=== PATIENT | female | born 1950 | race African-American/Black ===

== ENCOUNTER 2016-04-03 08:20 | Observation (INO) ==
--- NOTE | 2016-04-03 08:36 | Emergency Department Note ---
Disposition Clinical Impression: Renal failure, Elevated troponin I level Congestive heart failure Qualifiers: Congestive heart failure type: unspecified congestive heart failure type Congestive heart failure chronicity: acute on chronic Qualified Code(s): I50.9 - Heart failure, unspecified Disposition: Admitted As Inpatient Condition: Fair Forms: ED Satisfaction Letter Time of Disposition: 10:43 SOB HPI - General Chief Complaint: ED Shortness of Breath/Dyspnea Stated Complaint: SOB Time Seen by Provider: 04/03/16 08:28 Source: patient Mode of arrival: EMS Limitations: no limitations Nursing Notes Reviewed: Yes Vital Signs Reviewed: Yes - History of Present Illness Patient is a 65-year-old female who presents to [facility] ED with a chief complaint of shortness of breath. States her symptoms have been going on over the last week and worsened last night. States she was started on a dose of Lasix though she does not know how much. 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 She has been seeing Dr. Shannon for kidney disease though she does not know this was specifics of this. Denies any nausea, vomiting, fever or chills. She has had a cough though nonproductive. Past medical history significant for kidney disease, hypertension, anxiety and depression. Pt Subjective Complaint: shortness of breath Onset (ago): day(s) Severity: moderate Consistency/Duration: gradually worsening Improves with: rest, upright position Worsens with: lying flat Associated symptoms: Reports: orthopnea. Denies: chest pain, fever, cough, nausea/vomiting, abdominal pain Treatment prior to arrival: none Cough present: Yes Cough Description: Non-Productive Cough Frequency: Intermittent Sputum production: No Sputum Amount: None - Related Data Home Medications Medication Instructions Recorded Confirmed No Known Home Drugs 04/03/16 04/03/16 Allergies Allergy/AdvReac Type Severity Reaction Status Date / Time cephalexin [From Keflex] AdvReac Rash Verified 04/03/16 10:05 codeine AdvReac Nausea Verified 04/03/16 10:05 All systems ED: reviewed and negative except as stated. Past Medical History - Past Medical History Attestation: Yes The following information was validated with the patient. Source: patient Physical Exam - General Limitations: no limitations General appearance: alert, in no apparent distress - Head Head exam: atraumatic, normocephalic, normal inspection - Eye Eye exam: Present: normal appearance, PERRL, EOMI - ENT ENT exam: normal exam, normal oropharynx, mucous membranes moist - Neck Neck exam: Present: normal inspection, full ROM, trachea midline - Chest Chest inspection: Present: normal inspection - Respiratory Respiratory exam: Present: other (Left-sided rhonchi) - Cardiovascular Cardiovascular exam: Present: normal rhythm, tachycardia - Abdominal Exam Abdominal exam: Present: soft, Non-Tender. Absent: tenderness, distention, guarding, rebound, rigidity - Extremities Exam Extremities exam: Present: normal inspection, full ROM. Absent: tenderness, pedal edema - Back Exam Back exam: Present: normal inspection, full ROM. Absent: tenderness - Neurological Exam Neurological exam: Present: alert, oriented X3 - Psychiatric Psychiatric exam: Present: normal affect, normal mood - Skin Skin exam: Present: warm, dry, intact, normal color Course Course Narrative: Patient seen and examined. Symptoms of fluid accumulation in the lungs. Gradual shortness of breath along with orthopnea. No lower extremity swelling. Patient is hypertensive in the 180s over 110s. Cardiac workup initiated. - Reevaluation(s) Reevaluation #1: Troponin elevated at 0.07. BNP greater than 5000. We will admit for CHF exacerbation. Acute kidney injury on chronic kidney disease as well. Her creatinine is higher than it has been in the past. I spoke with hospitalist Dr. Mccoy who has accepted patient for admission. She would like 40 mg of IV Lasix. This was given and pt's BP currently at 150/100. Time: 10:41 Shortness of Breath/Dyspnea - Medical Records Medical records reviewed: Yes I reviewed the patient's medical records. - Lab Data Lab results reviewed: Yes I reviewed the patient's lab results. - Radiology Data Radiology results reviewed: Yes I reviewed the patient's radiology results. - EKG Data EKG attestation: Yes I reviewed and interpreted this EKG. EKG results narrative: EKG done at 827 shows sinus tachycardia with a rate of [address] elevation or depressions noted. Inverted T wave in lead 1 and aVL. This is unchanged from prior EKG done 04/30/2009.
--- NOTE | 2016-04-03 08:51 | Emergency Department Note ---
START Narrative - START START: I examined this patient and my medical decision-making was reviewed with the COAT REPAIR INSPECTOR/PA/Advanced Practice Nurse/Resident Physician. I agree with the documented findings, disposition and treatment plan as described except to the extent set forth below. ED attending note: Patient seen with emergency medicine resident Dr. Lowery. Please see a copy of his note for details of the H&P, evaluation, management and disposition of this patient. We independently had [id number] contact with the patient Briefly: A 65-year-old -[place] female by EMS for increasing shortness of breath. Patient was seen approximately a week ago at [facility] for CHF discharge home with a prescription for Lasix. Patient says she has been unable to fill the prescription. In the interim has had increasing shortness of breath and fatigue. Denies chest pain. Some cough and sputum. Patient has left-sided rales. Trace edema. EKG shows no acute ischemic changes. Patient will need a workup and possibly admission. Provided 40 minutes of critical care service for this patient. Disposition pending.
[2016-04-03 09:11] LABS: Basophils % 0.2 %; Eosinophils # 0.1 K/mcL (0.0-0.6); Eosinophils % 0.5 %; Hematocrit 35.9 % (35.3-44.9); Hemoglobin 11.3 g/dL (11.5-15.4); Immature Granulocytes % 0.3 % (0-4); Lymphocytes # 1.8 K/mcL (0.6-4.6); Lymphocytes % 17.9 %; Mean Corpuscular HGB Conc 31.5 g/dL (31.6-35.5); Mean Corpuscular Hemoglobin 29.7 pg (28.0-33.3); Mean Corpuscular Volume 94.5 fL (83.0-100.0); Mean Platelet Volume 10.8 fL (9.4-12.4); Monocytes # 0.5 K/mcL (0.0-1.3); Monocytes % 5.4 %; Neutrophils # 7.5 K/mcL (1.6-8.9); Platelet Count 343 K/mcL (140-400); Red Cell Distribution Width 13.9 % (11.5-14.5); Segmented Neutrophils % 75.7 %
[2016-04-03 09:23] LABS: Calcium 9.6 mg/dL (8.6-10.8); Potassium 4.1 mEq/L (3.5-4.5)
[2016-04-03] MEDS ORDERED: Furosemide 40 MG/4 ML VIAL IVP ONE (09:53)
[2016-04-03] MEDS ORDERED: Acetaminophen 325 MG TABLET PO PRN (11:07)
[2016-04-03] MEDS ORDERED: Ondansetron 4 MG/2 ML VIAL IVP PRN (11:07)
--- NOTE | 2016-04-03 11:20 | Internal Med History&Physical ---
Date of Encounter: 04/03/16 Time of Encounter: 10:30 Assessment and Plan (1) Acute heart failure Current visit: Yes Status: Acute CXR shows early signs of interstitial pulmonary edema. BNP >5000. troponin 0.07. new diagnosis of heart failure. In ED, she received 40 mg IV lasix with good diuresis (patient went to bathroom twice already). During my examination, her shortness of breath resolved, and she is ambulating without distress. I will place her in observation given her poor insight about her condition. I believe if I discharge her home she won't follow any instructions and she will come back. check Echocardiogram consult nutrition for education about hf. fluid restriction. strict I/o lopressor bid lasix po. Qualifiers: Heart failure type: unspecified heart failure type Qualified Code(s): I50.9 - Heart failure, unspecified (2) Hypertensive urgency Current visit: Yes Status: Acute non-compliance with medications for years because she got tired of taking so many pills every day. She verbalized understanding of all the risks of not taking BP meds including stroke, CHF and [place], but still states that it is going to be very difficult to take medications every day again. start amlodipine, lopressor. iv hydralazine prn/ (3) Acute worsening of stage 4 chronic kidney disease Current visit: Yes Status: Acute CKD stage 4. follows with dr hernandez acute renal failure due to cardiorenal cause. close monitoring of kidney function. avoid nephrotoxins as possible. (4) Elevated troponin I level Current visit: Yes Status: Acute supply demand mismatch from heart failure in the setting of ckd 4. EKG showed ST HR 108, atrial enlargement. (5) Tobacco abuse Current visit: Yes Status: Acute nicotine patch. counseled to quit. Internal Medicine - H&P: HPI Chief complaint: progressive shortness of breath for 1 week Admitted From: Home Plans for Post Hospital Care: Home History of present illness: Ms. Carranza is a 65 year old female with past medical history of HTN, not on any medications for years because she got tired of taking so many pills every day. She verbalized understanding of all the risks of not taking BP meds including stroke, CHF and VA, and still states that it is going to be very difficult to take medications every day again. A week ago, she developed shortness of breath when lying flat so she saw her PCP and was diagnosed with CHF. She was prescribed Lasix but never took it. Her symptoms of shortness of breath progressed and she felt so sick that she came today to our ED. BP 184/ 131. She received 40 mg IV lasix with good diuresis (patient went to bathroom already twice) and improvement of her symptoms. Nosyncope. No le edema. no chest pain. no palpitations. no fever. no cough. no headaches. no focal deficit. no abdominal pain. no new urinary symptoms (she has urinary frequency for years). Past Med Surg Social Fam HX - Past Medical History Medical history: CHF, hypertension, thyroid disease Psychiatric history: bipolar, depression - Social History Smoking Status: Current every day smoker Smokeless Tobacco Status: No Alcohol use: occasionally Drug use: none - Family History Brother Hx Family Endocrine Disorder: Yes (DM) Internal Medicine - H&P: Meds No Known Home Drugs 04/03/16 [History] Allergies cephalexin [From Keflex] Adverse Reaction (Verified 04/03/16 10:05) Rash codeine Adverse Reaction (Verified 04/03/16 10:05) Nausea All Systems PM: A 10-system review of systems was performed and is negative for pertinent findings except as documented above in the HPI. - Constitutional Vitals: Temp Pulse Resp BP Pulse Ox 97.5 F L 108 18 159/100 97 04/03/16 08:21 04/03/16 10:38 04/03/16 10:49 04/03/16 10:49 04/03/16 10:38 General appearance: Present: cooperative, A&O X 3, pleasant, no acute distress, answers questions appropriately - Eye Eye exam: Present: PERRL, sclera anicteric - ENT ENT exam: Present: mucous membranes moist - Neck Neck exam general surgery: Present: supple, trachea midline. Absent: lymphadenopathy - Respiratory Respiratory exam: Present: rhonchi (at left lung base) - Cardiovascular Cardiovascular exam: Present: tachycardia - GI/Abdominal GI/Abdominal exam: Present: normal bowel sounds, soft. Absent: distended, tenderness - Extremities Exam Extremities exam: Absent: pedal edema - Back Exam Back exam: Absent: CVA tenderness (L), CVA tenderness (R) - Neurological Exam Neurological exam: Present: alert, oriented X3, no focal deficits. Absent: facial droop, speech deficit - Skin Skin exam: Present: intact. Absent: rash Internal Med - H&P Results - Labs CBC & Chem 7: 04/03/16 09:02 04/03/16 09:02
[2016-04-03] MEDS: Nicotine 14 MG PATCH.TD24 TD SCH (12:39)
[2016-04-03] MEDS: amLODIPine 5 MG TABLET PO SCH (12:39)
[2016-04-03] MEDS: Furosemide 20 MG/2 ML VIAL IVP SCH (16:50)
[2016-04-03] MEDS: *HR* Heparin 5,000 UNIT/ML VIAL SQ SCH (16:50)
[2016-04-03] MEDS ORDERED: Furosemide 40 MG/4 ML VIAL IVP SCH (17:00)
[2016-04-03 18:24] LABS: Calcium 9.4 mg/dL (8.6-10.8); Magnesium 1.8 mg/dL (1.6-2.6)
--- NOTE | 2016-04-03 20:08 | Electrocardiograph Report ---
[address] [place], [place] [address] Test Date: 2016-04-03 Pat Name: Daria Carranza Department: 105 Room: 2A Gender: F Character Actress: : 1950 Requested By: Rosalva Lowery Order Number: [id number] Reading MD: Zev Magana Measurements Intervals [place] Rate: 105 P: 79 MD: 172 QRS: -28 QRSD: 98 T: 141 QT: 331 QTc: 392 Interpretive Statements SINUS TACHYCARDIA POSSIBLE LEFT ATRIAL ENLARGEMENT BORDERLINE LEFT AXIS DEVIATION ST DEVIATION AND MODERATE T-WAVE ABNORMALITY, CONSIDER LATERAL ISCHEMIA Electronically Signed On 04-03-2016 20:06:35 EST by Zev Magana
[2016-04-04 07:04] LABS: Albumin 2.6 g/dL (3.5-5.0); Bilirubin,Total 0.2 mg/dL (0.2-1.2); Calcium 8.9 mg/dL (8.6-10.8); Chol/HDL Ratio 2.7 (0-4.9); Globulin 2.7 g/dL (2.4-3.5); Magnesium 1.9 mg/dL (1.6-2.6); Potassium 3.9 mEq/L (3.5-4.5); Total Protein 5.3 g/dL (6.0-8.3)
[2016-04-04] MEDS: *HR* Heparin 5,000 UNIT/ML VIAL SQ SCH (07:22)
[2016-04-04] MEDS: Furosemide 20 MG/2 ML VIAL IVP SCH (07:52)
[2016-04-04] MEDS: Nicotine 14 MG PATCH.TD24 TD SCH (07:52)
[2016-04-04] MEDS: amLODIPine 5 MG TABLET PO SCH (07:52)
[2016-04-04] MEDS ORDERED: Furosemide 20 MG TABLET PO SCH (08:00)
[2016-04-04 08:47] LABS: Basophils % 0.3 %; Eosinophils # 0.1 K/mcL (0.0-0.6); Eosinophils % 1.1 %; Hematocrit 33.6 % (35.3-44.9); Immature Granulocytes % 0.4 % (0-4); Lymphocytes # 2.1 K/mcL (0.6-4.6); Lymphocytes % 22.6 %; Mean Corpuscular HGB Conc 32.1 g/dL (31.6-35.5); Mean Corpuscular Hemoglobin 30.1 pg (28.0-33.3); Mean Corpuscular Volume 93.6 fL (83.0-100.0); Mean Platelet Volume 12.4 fL (9.4-12.4); Monocytes # 0.5 K/mcL (0.0-1.3); Monocytes % 5.7 %; Neutrophils # 6.4 K/mcL (1.6-8.9); Red Blood Count 3.59 M/mcL (3.82-4.97); Red Cell Distribution Width 13.9 % (11.5-14.5); Segmented Neutrophils % 69.9 %
[2016-04-04 08:49] LABS: Hemoglobin 10.8 g/dL (11.5-15.4); Platelet Count 284 K/mcL (140-400)
--- NOTE | 2016-04-04 08:50 | Discharge Summary ---
Date of Encounter: 04/04/16 Time of Encounter: 08:47 - Discharge Diagnosis (1) Acute heart failure Priority: Primary Status: Acute Comments: Acute CHF exacerbation possibly diastolic Qualifiers: Heart failure type: unspecified heart failure type Qualified Code(s): I50.9 - Heart failure, unspecified (2) Acute worsening of stage 4 chronic kidney disease Priority: Secondary Status: Acute Comments: Acute on chronic renal failure likely related to CHF (3) Elevated troponin I level Priority: Secondary Status: Acute Comments: Elevated troponins likely secondary to demand ischemia (4) Hypertensive urgency Priority: Secondary Status: Acute Comments: Accelerated hypertension secondary to noncompliance with medications (5) Tobacco abuse Priority: Secondary Status: Acute - Discharge Medications Prescriptions: Amlodipine [Norvasc] 5 mg PO DAILY #30 tablet Furosemide [Lasix] 20 mg PO BID #60 tablet Metoprolol [Lopressor] 25 mg PO BID #60 tablet Sodium Bicarbonate 650 mg PO BID #60 tablet Home Medications: Amlodipine [Norvasc] 5 mg PO DAILY #30 tablet 04/04/16 [Rx] Furosemide [Lasix] 20 mg PO BID #60 tablet 04/04/16 [Rx] Metoprolol [Lopressor] 25 mg PO BID #60 tablet 04/04/16 [Rx] Sodium Bicarbonate 650 mg PO BID #60 tablet 04/04/16 [Rx] Allergies/Adverse Reactions: Allergies cephalexin [From Keflex] Adverse Reaction (Verified 04/03/16 10:05) Rash codeine Adverse Reaction (Verified 04/03/16 10:05) Nausea Procedures/tests Complete & Pending: Procedures Performed prior 72 hours Category Date Time Status ECG 12 lead ECG [ECG] AM 0600 Y 04/04/16 06:00 Ordered EV echocardiogram Routine Y 04/03/16 11:17 Completed Date of admission: 04/03/16 10:04 Primary care physician: Vito Pedro DO - Patient Status Disposition: Home, Self-Care Condition: Good Overall status at discharge: patient is progressing back to baseline - Discharge Instructions Follow Up With: Vito Pedro DO [Primary Care Provider] - Additional Instructions: Follow-up with primary care physician within the next 7 days. Continue Lasix 20 mg twice a day. Follow the final report of the echocardiogram with Dr. Shannon /nephrology within the next 7 days. Start metoprolol and amlodipine for blood pressure control. - Diet and Activity Activity: increase activity as tolerated Diet: low fat, low cholesterol, low salt diet Hospital course: Ms. Carranza is a 65 year old female with a past medical history of hypertension, depression, bipolar disorder not on any medications for years because she got tired of taking so many pills every day. She verbalized understanding of all the risks of not taking BP meds including stroke, CHF and [place], and still states that it is going to be very difficult to take medications every day again. A week ago, she developed shortness of breath when lying flat so she saw her PCP and was diagnosed with CHF. She was prescribed Lasix but never took it. Her symptoms of shortness of breath progressed and she felt so sick that she came to our ED. BP 184/131. She received 40 mg IV lasix with good diuresis (patient went to bathroom already twice) and improvement of her symptoms. Nosyncope. No le edema. no chest pain. no palpitations. no fever. no cough. no headaches. no focal deficit. no abdominal pain. no new urinary symptoms (she has urinary frequency for years). Chest x-ray showed interstitial edema. Her creatinine has increased up to 3.34. She understands that these could be related to her noncompliance with blood pressure medications as her prior creatinine back on October 2015 was 2.45. She prefers to be discharged today and follow with Dr. Shannon. She feels much better, an echocardiogram was done prefers to review the results when she sees Dr. Shannon. Patient will be discharged on Lasix 20 mg twice a day. Metoprolol and amlodipine were started although she mentions she will not take those medications she is tired of taking pills. She understands that her worsening of kidney function and hypertension are due to noncompliance. She was instructed on the risks again. She says she made a "pact with a friend that will take care of her when she gets a stroke of another complication from HTN". Agreed to start lasix. Prescriptions for all other medications were prescribed in case the patient decides to follow our recommendations. Time spent discussing smoking cessation with patient: 3 to 10 minutes - Time Spent with Patient Total time spent providing and/or coordinating discharge services: Greater than 30 minutes (40 min) - Constitutional Vitals: Temp Pulse Resp BP Pulse Ox 97.9 F 80 18 137/84 99 04/04/16 07:12 04/04/16 07:12 04/04/16 07:12 04/04/16 07:12 04/04/16 08:03 General appearance: Present: cooperative, A&O X 3, pleasant, no acute distress, answers questions appropriately - Head Head exam: Present: atraumatic, normocephalic - Eye Eye exam: Present: PERRL, conjuntiva pink, sclera anicteric Pupils: Present: PERRL - Neck Neck exam general surgery: Present: supple, trachea midline. Absent: lymphadenopathy - Respiratory Respiratory exam: Present: CTAB. Absent: accessory muscle use, rales, rhonchi, wheezes - Cardiovascular Cardiovascular exam: Present: RRR, +S1, +S2. Absent: diastolic murmur, gallop, rubs, systolic murmur - GI/Abdominal GI/Abdominal exam: Present: normal bowel sounds, soft, no peritoneal signs. Absent: distended, tenderness - Extremities Exam Extremities exam: Present: warm, radial pulses palpable and symetrical. Absent : calf tenderness, cyanotic, pedal edema - Neurological Exam Neurological exam: Present: CN II-XII intact, oriented X3, no focal deficits. Absent: pronater drift, facial droop, speech deficit - Skin Skin exam: Present: dry, intact
[2016-04-04] MEDS ORDERED: FLU VACC QS2016-17 36MOS UP/PF 0.5 ML SYRINGE IM ONE (09:07)
--- NOTE | 2016-04-04 09:18 | ECHO - Doppler Report ---
Echo with Saline Contrast Name: Daria Carranza Date of Study: 04/03/2016 Date: 1950 Ht: 63.0 in Medical Record#: [id number] Age: 65 Wt: 128.0 lb Gender: Female BSA: 1.6 Order #: [id number] Location: [facility] Room #: 2A62 Reading Physician: Francisco Javier Daniel DO, JOLIE CORNELL FASNC Clamshell Engineer: Maryjane Manning Ordering Physician: Lilly Roblero MD Primary Physician: Vito Pedro DO Indications: Congestive heart failure Impressions: LVEF 45%. Normal LV chamber size. Mild concentric left ventricular hypertrophy. Moderate left ventricular diastolic dysfunction. Mild global left ventricular systolic dysfunction. Normal right ventricular structure and function. Moderately dilated left atrium. No evidence of PFO with agitated saline contrast. Mild aortic regurgitation. No evidence of pulmonary hypertension. Left Ventricular Wall Motion: Rest Echo Findings The apex, apical inferior, mid inferior, basal inferior, apical anterior, mid anterior, basal anterior, apical septal, mid inferior septal, basal inferior septal, apical lateral, mid anterior lateral, basal anterior lateral, mid anterior septal, mid inferior lateral, basal anterior septal and basal inferior lateral ricardo were hypokinetic. Findings: Study Quality * Technically adequate exam. ECG Findings * Normal sinus rhythm. Left Ventricle * LVEF 45%. * Normal LV chamber size. * Mild concentric left ventricular hypertrophy. * Moderate left ventricular diastolic dysfunction. * Mild global left ventricular systolic dysfunction. Right Ventricle * Normal right ventricular structure and function. Left Atrium * Moderately dilated left atrium. Right Atrium * Mildly dilated right atrium. Interatrial Septum * No evidence of PFO with agitated saline contrast. Aortic Valve * Trileaflet aortic valve. * Mildly sclerotic aortic valve leaflets. * Mild aortic regurgitation. * No aortic stenosis. Mitral Valve * Mildly thickened mitral valve leaflets. * Trace mitral regurgitation. * No mitral stenosis. Tricuspid Valve * Normal tricuspid valve structure and function. * Trace tricuspid regurgitation. * No evidence of pulmonary hypertension. Pulmonic Valve * Normal pulmonic valve structure and function. * No pulmonic regurgitation. Aorta * Normally sized aortic root. Pericardium * There is a small pericardial effusion present. * There is no echocardiographic evidence of tamponade. IVC * Normal IVC dimensions and inspiratory collapse. Pulmonary Artery * Normal visualized portions of the main pulmonary artery. History Hypertension History of Smoking Years 25 Packs 2 Congestive Heart Failure Contrast: Agitated saline 20 ml. Measurements: BP: 164/ 94 2D Normal Values RVIDd: 3.10 cm <2.7 cm IVSd: 1.70 cm 0.6 - 1.0 cm LVIDd: 4.70 cm 3.7 - 5.6 cm LVPWd: 1.40 cm 0.6 - 1.1 cm LVIDs: 3.60 cm 1.5 - 3.6 cm AO: 3.00 cm < 4.0 cm LA: 5.30 cm 2.0 - 4.0cm %FS: 23.40 cm >25 % LA volume: 110 Mitral Valve Peak E:1.09 m/sec Peak A:.62 m/sec E/A Ratio:1.8 Peak E' Lat Curtis:6.43 cm/s Peak E' Med Curtis:5.75 cm/s E/E' Lat Ratio:17 E/E' Med Ratio:19 Aortic Valve AI pressure Half-time: 487.00 msec Tricuspid Valve TV Regurg Peak Grad: 11.00mmHg TV Regurg Peak Curtis: 1.66m/sec Updated by Francisco Javier Daniel DO, FACZheng, KATHY DAVE on 04/04/2016 9:12:47 AM electronically signed on 04/04/2016 9:13:40 AM with status of Final Wall Motion Banks: 1=Normal, 2=Hypokinesis, 3=Akinesis, 4=Dyskinesis, 5=Aneurysmal, 6=Hyperkinetic, X=Not Visualized (Blank)=Missing
[2016-04-04 14:35] VITALS: BP 177/70
== END 2016-04-04 09:40 | disposition home or self-care (01) ==
LOC: 2ANU 08:20 → EMEROO 08:20 → SUATTDRO 10:04 → 2ANU 11:23
PROVIDERS: ADMIT Internal Medicine; ATTEND Internal Medicine

== ENCOUNTER 2017-02-06 10:15 | Inpatient (IN) ==
--- NOTE | 2017-02-06 10:27 | Emergency Department Note ---
Disposition Clinical Impression: Elevated troponin CHF exacerbation Qualifiers: Congestive heart failure type: unspecified congestive heart failure type Qualified Code(s): I50.9 - Heart failure, unspecified CKD (chronic kidney disease) Qualifiers: Chronic kidney disease stage: unspecified stage Qualified Code(s): N18.9 - Chronic kidney disease, unspecified Anemia Qualifiers: Anemia type: unspecified type Qualified Code(s): D64.9 - Anemia, unspecified Leukocytosis Qualifiers: Leukocytosis type: unspecified Qualified Code(s): D72.829 - Elevated white blood cell count, unspecified Disposition: Admitted As Inpatient Condition: Good Referrals: Vito Pedro DO [Primary Care Provider] - Forms: ED Satisfaction Letter General Adult HPI - General Chief complaint: ED Shortness of Breath/Dyspnea Stated complaint: CHF Time Seen by Provider: 02/06/17 10:22 Mode of arrival: EMS Limitations: no limitations Nursing Notes Reviewed: Yes Vital Signs Reviewed: Yes - History of Present Illness HPI Narrative: 66-year-old female who reports approximately 24-48 hours of increasing dyspnea. Specifically orthopnea. She does have history of congestive heart failure. She denies missing any of her doses of medications but earlier this month did send back her oxygen machine as she said that she could not afford it. So currently although she is mostly on home oxygen all the time she is not taking oxygen. She did admit to having some chest pain earlier today. It is currently resolved. She does not have known coronary arterial disease. Radiation: non-radiation Pain Scale: 0 Consistency: intermittent Improves with: nothing Worsens with: other (Orthopnea) Associated symptoms: Reports: denies other symptoms Treatments Prior to Arrival: none - Related Data Previous Rx's Medication Instructions Recorded Furosemide [Lasix] 20 mg PO BID #60 tablet 04/04/16 Metoprolol [Lopressor] 25 mg PO BID #60 tablet 04/04/16 Sodium Bicarbonate 650 mg PO BID #60 tablet 04/04/16 amLODIPine [Norvasc] 5 mg PO DAILY #30 tablet 04/04/16 Allergies Allergy/AdvReac Type Severity Reaction Status Date / Time cephalexin [From Keflex] AdvReac Rash Verified 02/06/17 10:15 codeine AdvReac Nausea Verified 02/06/17 10:15 All systems ED: reviewed and negative except as stated. Constitutional: Denies: fever ENT ED: Denies: throat pain Cardiovascular: Reports: chest pain Respiratory: Reports: cough, dyspnea Gastrointestinal: Denies: abdominal pain Integumentary: Denies: rash Neurological: Denies: headache Endocrine: Reports: fatigue Past Medical History - Past Medical History Medical history: Reports: CHF, hypertension, thyroid disease Psychiatric history: Reports: bipolar, depression - Social History Smoking Status: Current every day smoker Smokeless Tobacco Status: No Alcohol use: Reports: occasionally Drug use: Reports: none Physical Exam - General Limitations: no limitations General appearance: alert, in no apparent distress - Head Head exam: atraumatic - Eye Eye exam: Present: normal appearance, PERRL - ENT ENT exam: normal exam, normal oropharynx - Neck Neck exam: Present: normal inspection, full ROM - Chest Chest inspection: Present: normal inspection - Respiratory Respiratory exam: Present: normal lung sounds bilaterally. Absent: respiratory distress - Cardiovascular Cardiovascular exam: Present: normal rhythm, tachycardia - Abdominal Exam Abdominal exam: Present: soft, Non-Tender - Extremities Exam Extremities exam: Present: normal inspection - Neurological Exam Neurological exam: Present: alert, oriented X3 - Psychiatric Psychiatric exam: Present: normal affect, normal mood - Skin Skin exam: Present: warm, dry Course Course Narrative: She is not currently having any chest pain. However she is having orthopnea. No significant lung sounds on exam. She is in no respiratory distress. She is mildly hypoxic at 88% on room air however she is supposed to be on O2 at all times. Echocardiogram showed from March of this year shows LV EF of 45% and moderate diastolic dysfunction. Clinically she has a CHF exacerbation. V/Q low probability for PE. Negative hemoccult on rectal exam. Anemia is present, no bleeding source identified. There is some ST depression in the lateral leads. Troponin is elevated however has chronically been so. No chest pain currently. WBC is elevated but no source of infection is apparent. She is not septic and clinically appears to be an isolated CHF exacerbation. CKD is present at baseline. She feels substantial improvement after nitro paste and lasix. Vital Signs Temperature 98.1 F 02/06/17 10:33 Pulse Rate 101 02/06/17 10:33 Respiratory Rate 22 02/06/17 10:33 Blood Pressure 164/116 02/06/17 10:33 O2 Sat by Pulse Oximetry 100 02/06/17 10:33 Temperature 98.1 F 02/06/17 10:33 Pulse Rate 101 02/06/17 12:16 Respiratory Rate 22 02/06/17 10:33 Blood Pressure 171/97 02/06/17 12:16 O2 Sat by Pulse Oximetry 94 02/06/17 12:16 Oxygen Delivery Oxygen Delivery Nasal Cannula Medical Decision Making - Medical Records Medical records reviewed: Yes I reviewed the patient's medical records. - Lab Data Lab results reviewed: Yes I reviewed the patient's lab results. Result diagrams: 02/06/17 10:37 02/06/17 10:37 Lab Results 02/06/17 02/06/17 02/06/17 Range/Units 10:37 10:37 10:37 WBC 20.7 H (4.3-11.1) K/mcL RBC 2.49 L (3.82-4.97) M/mcL Hgb 7.5 L (11.5-15.4) g/dL Hct 24.0 L (35.3-44.9) % MCV 96.4 (83.0-100.0) fL MCH 30.1 (28.0-33.3) pg MCHC 31.3 L (31.6-35.5) g/dL RDW 14.4 (11.5-14.5) % Plt Count 315 (140-400) K/mcL MPV 10.5 (9.4-12.4) fL Immature Gran % 0.5 (0-4) % Seg Neutrophils % 86.8 % Lymphocytes % 8.6 % Monocytes % 3.8 % Eosinophils % 0.0 % Basophils % 0.3 % Neutrophils # 17.9 H (1.6-8.9) K/mcL Lymphocytes # 1.8 (0.6-4.6) K/mcL Monocytes # 0.8 (0.0-1.3) K/mcL Eosinophils # 0.0 (0.0-0.6) K/mcL Basophils # 0.1 (0.0-0.2) K/mcL D-Dimer 1500 H (0-500) ng/mLFEU Sodium 139 (136-145) mEq/L Potassium 3.9 (3.5-5.1) mEq/L Chloride 113 H (98-107) mEq/L Carbon Dioxide 17 L (23-29) mEq/L BUN 32 H (8-23) mg/dL Creatinine 3.20 H (0.60-1.20) mg/dL Est GFR ( Amer) 18 L (> 60) Est GFR (Non-Af Amer) 14 L (> 60) BUN/Creatinine Ratio 10 (6-26) Glucose 195 H (70-105) mg/dL Calculated Osmolality 300 (280-300) Lactic Acid (0.5-2.2) mmol/L Calcium 9.0 (8.6-10.3) mg/dL Troponin I (< 0.04) ng/mL B-Natriuretic Peptide (Less than 100) pg/mL Urine Color (Yellow) Urine Clarity (Clear) Urine pH (5.0-8.0) pH Units Ur Specific [place] (1.010-1.025) Urine Protein (Neg-Trace) mg/dL Urine Glucose (UA) (Normal) mg/dL Urine Ketones (Negative) mg/dL Urine Blood (Negative) Urine Nitrite (Negative) Urine Bilirubin (Negative) Urine Urobilinogen (Normal) mg/dL Ur Leukocyte Esterase (Negative) Urine Microscopic RBC (0-3) per hpf Urine Microscopic WBC (0-3) per hpf Ur Squamous Epith Cells (None-Few) per lpf Urine Bacteria (None-Few) per hpf Hyaline Casts (None-Few) per lpf Waxy Casts (None Seen) per lpf Urine Mucus (Few) Urine Yeast (None Seen) per hpf Ur Culture Indicated? (NO) Stool Occult Blood (Negative) Blood Type Antibody Screen 02/06/17 02/06/17 02/06/17 Range/Units 10:37 10:37 10:37 WBC (4.3-11.1) K/mcL RBC (3.82-4.97) M/mcL Hgb (11.5-15.4) g/dL Hct (35.3-44.9) % MCV (83.0-100.0) fL MCH (28.0-33.3) pg MCHC (31.6-35.5) g/dL RDW (11.5-14.5) % Plt Count (140-400) K/mcL MPV (9.4-12.4) fL Immature Gran % (0-4) % Seg Neutrophils % % Lymphocytes % % Monocytes % % Eosinophils % % Basophils % % Neutrophils # (1.6-8.9) K/mcL Lymphocytes # (0.6-4.6) K/mcL Monocytes # (0.0-1.3) K/mcL Eosinophils # (0.0-0.6) K/mcL Basophils # (0.0-0.2) K/mcL D-Dimer (0-500) ng/mLFEU Sodium (136-145) mEq/L Potassium (3.5-5.1) mEq/L Chloride (98-107) mEq/L Carbon Dioxide (23-29) mEq/L BUN (8-23) mg/dL Creatinine (0.60-1.20) mg/dL Est GFR ( Amer) (> 60) Est GFR (Non-Af Amer) (> 60) BUN/Creatinine Ratio (6-26) Glucose (70-105) mg/dL Calculated Osmolality (280-300) Lactic Acid 1.9 (0.5-2.2) mmol/L Calcium (8.6-10.3) mg/dL Troponin I 0.06 H* (< 0.04) ng/mL B-Natriuretic Peptide > 5000 H (Less than 100) pg/mL Urine Color (Yellow) Urine Clarity (Clear) Urine pH (5.0-8.0) pH Units Ur Specific [place] (1.010-1.025) Urine Protein (Neg-Trace) mg/dL Urine Glucose (UA) (Normal) mg/dL Urine Ketones (Negative) mg/dL Urine Blood (Negative) Urine Nitrite (Negative) Urine Bilirubin (Negative) Urine Urobilinogen (Normal) mg/dL Ur Leukocyte Esterase (Negative) Urine Microscopic RBC (0-3) per hpf Urine Microscopic WBC (0-3) per hpf Ur Squamous Epith Cells (None-Few) per lpf Urine Bacteria (None-Few) per hpf Hyaline Casts (None-Few) per lpf Waxy Casts (None Seen) per lpf Urine Mucus (Few) Urine Yeast (None Seen) per hpf Ur Culture Indicated? (NO) Stool Occult Blood (Negative) Blood Type Antibody Screen 02/06/17 02/06/17 02/06/17 Range/Units 11:25 12:22 14:33 WBC (4.3-11.1) K/mcL RBC (3.82-4.97) M/mcL Hgb (11.5-15.4) g/dL Hct (35.3-44.9) % MCV (83.0-100.0) fL MCH (28.0-33.3) pg MCHC (31.6-35.5) g/dL RDW (11.5-14.5) % Plt Count (140-400) K/mcL MPV (9.4-12.4) fL Immature Gran % (0-4) % Seg Neutrophils % % Lymphocytes % % Monocytes % % Eosinophils % % Basophils % % Neutrophils # (1.6-8.9) K/mcL Lymphocytes # (0.6-4.6) K/mcL Monocytes # (0.0-1.3) K/mcL Eosinophils # (0.0-0.6) K/mcL Basophils # (0.0-0.2) K/mcL D-Dimer (0-500) ng/mLFEU Sodium (136-145) mEq/L Potassium (3.5-5.1) mEq/L Chloride (98-107) mEq/L Carbon Dioxide (23-29) mEq/L BUN (8-23) mg/dL Creatinine (0.60-1.20) mg/dL Est GFR ( Amer) (> 60) Est GFR (Non-Af Amer) (> 60) BUN/Creatinine Ratio (6-26) Glucose (70-105) mg/dL Calculated Osmolality (280-300) Lactic Acid (0.5-2.2) mmol/L Calcium (8.6-10.3) mg/dL Troponin I (< 0.04) ng/mL B-Natriuretic Peptide (Less than 100) pg/mL Urine Color Yellow (Yellow) Urine Clarity Cloudy A (Clear) Urine pH 6.0 (5.0-8.0) pH Units Ur Specific [place] 1.016 (1.010-1.025) Urine Protein 100 H (Neg-Trace) mg/dL Urine Glucose (UA) 250 H (Normal) mg/dL Urine Ketones Negative (Negative) mg/dL Urine Blood Negative (Negative) Urine Nitrite Negative (Negative) Urine Bilirubin Negative (Negative) Urine Urobilinogen Normal (Normal) mg/dL Ur Leukocyte Esterase Negative (Negative) Urine Microscopic RBC 0-3 (0-3) per hpf Urine Microscopic WBC 5-15 H (0-3) per hpf Ur Squamous Epith Cells Many H (None-Few) per lpf Urine Bacteria Few (None-Few) per hpf Hyaline Casts Few (None-Few) per lpf Waxy Casts Few H (None Seen) per lpf Urine Mucus Few (Few) Urine Yeast Few H (None Seen) per hpf Ur Culture Indicated? NO (NO) Stool Occult Blood Negative (Negative) Blood Type O POSITIVE Antibody Screen NEGATIVE - Radiology Data Radiology results reviewed: Yes I reviewed the patient's radiology results. - EKG Data EKG #1 EKG attestation: Yes I reviewed and interpreted this EKG. EKG shows normal: sinus rhythm Rate: tachycardia Rhythm: NSR [place]/QRS: normal ST segment depression in: v4, v5, v6 Interpretation: other (Some worsening lateral ST depression in comparison to old EKG.) Attestation Statement - Attestation Attestation: I, Edi Yeboah DO, examined this patient [id number] and my medical decision-making was reviewed with Dr. Kobi Diaz, Resident Physician. I agree with the documented findings, disposition and treatment plan as described except to the extent set forth below. Please see my progress notes for details. 66-year-old female presents from home today for evaluation of shortness of breath hypoxia. Patient is supposed to have oxygen at home but has not been using it. Patient is a long-standing history of congestive heart failure. She denies any recent illnesses trauma or injury. Currently she is denying chest pain fevers chills nausea vomiting diarrhea. Denies any headache or vision change. Her main complaint is the shortness of breath. The only time she really truly short of breath is with exertion or while lying flat. Physical exam shows a thin appearing female her head is atraumatic extremities are moist oropharynx. Trachea is midline. She has clear sounding lungs bilaterally with intermittent Crackles when she lies flat. She did cough up some white frothy sputum during my evaluation. Her heart is regular. Abdomen is soft nontender nondistended with no guarding or rigidity. She has no significant signs of pitting edema in lower extremities with normal pulses that are symmetrical. Patient is concerning for congestive heart failure based on the presentation as well as fluid overload interstitial disease secondary to the hypoxia. Patient provided breathing treatments and steroids. Disposition will most likely be admission for definitive management. See detailed documentation of the physical exam, medical intervention, medical decision-making and disposition and the resident physician's note. No critical care provider this patient during the treatment course Patient found to have a BNP greater than 5000. Symptoms have been controlled here. Nitroglycerin paste applied secondary to the chest pressure earlier today that is resolved as well as the concern for pulmonary edema. Patient will need admission. See detailed documentation of this course of care. 1430 Patient has a VQ scan is negative for concern for pulmonary emboli. Occult testing the lab at this time patient will be admitted.
[2017-02-06 10:48] LABS: Basophils # 0.1 K/mcL (0.0-0.2); Basophils % 0.3 %; Immature Granulocytes % 0.5 % (0-4); Lymphocytes # 1.8 K/mcL (0.6-4.6); Lymphocytes % 8.6 %; Mean Corpuscular HGB Conc 31.3 g/dL (31.6-35.5); Mean Corpuscular Hemoglobin 30.1 pg (28.0-33.3); Mean Corpuscular Volume 96.4 fL (83.0-100.0); Mean Platelet Volume 10.5 fL (9.4-12.4); Monocytes # 0.8 K/mcL (0.0-1.3); Monocytes % 3.8 %; Neutrophils # 17.9 K/mcL (1.6-8.9); Platelet Count 315 K/mcL (140-400); Red Blood Count 2.49 M/mcL (3.82-4.97); Red Cell Distribution Width 14.4 % (11.5-14.5); Segmented Neutrophils % 86.8 %
[2017-02-06 11:09] LABS: Hemoglobin 7.5 g/dL (11.5-15.4)
[2017-02-06] MEDS ORDERED: Nitroglycerin 1 INCH/GM PACKET TP ONE (11:21)
[2017-02-06] MEDS ORDERED: Furosemide 40 MG/4 ML VIAL IVP ONE (11:21)
[2017-02-06 12:08] LABS: Potassium 3.9 mEq/L (3.5-5.1)
[2017-02-06] MEDS ORDERED: Aspirin 325 MG TABLET PO ONE (12:13)
[2017-02-06 14:06] LABS: Bilirubin,Urine Negative (Negative); Blood,Urine Negative (Negative); Clarity,Urine Cloudy (Clear); Color,Urine Yellow (Yellow); Glucose,Urine (UA) 250 mg/dL (Normal); Ketones,Urine Negative (Negative); Leukocyte Esterase,Urine Negative (Negative); Nitrite,Urine Negative (Negative); Protein,Urine 100 mg/dL (Neg-Trace); Specific Gravity,Urine 1.016 (1.010-1.025); Urobilinogen,Urine Normal (Normal)
[2017-02-06 14:08] LABS: Bacteria,Urine Few per hpf (None-Few); Squamous Epithelial Cell,Urine Many per lpf (None-Few)
[2017-02-06 14:22] LABS: Hyaline Casts,Urine Few per lpf (None-Few); RBC,Urine 0-3 per hpf (0-3); Waxy Casts,Urine Few per lpf (None Seen)
[2017-02-06 14:23] LABS: Mucus,Urine Few (Few); Yeast,Urine Few per hpf (None Seen)
--- NOTE | 2017-02-06 15:33 | Internal Med History&Physical ---
Date of Encounter: 02/06/17 Time of Encounter: 15:31 Assessment and Plan (1) Congestive heart failure Current visit: No Status: Acute CHF exacerbations due to severe hypertension. Telemetry monitoring. We will start the patient on nitrates, IV Lasix. Optimal control of blood pressure. Patient is noncompliant with her medications. She has not taken any of her medications for the past five-month. Check LV function Qualifiers: Qualified Code(s): I50.9 - Heart failure, unspecified (2) CKD stage 5 secondary to hypertension Current visit: Yes Status: Acute Due to long-standing uncontrolled hypertension (3) UTI (urinary tract infection) Current visit: Yes Status: Acute Ceftriaxone. Qualifiers: Qualified Code(s): N39.0 - Urinary tract infection, site not specified; R31.9 - Hematuria, unspecified; R31.9 - Hematuria, unspecified (4) Hypertensive urgency Current visit: No Status: Acute Due to medication noncompliance in addition to increased volume in this patient was CK beseech 5. Start the patient on 3 blood pressure medications including a diuretic. This includes her amlodipine, metoprolol, IV Lasix. Also add nitrates (5) Tobacco abuse Current visit: No Status: Acute She smokes 2 packs of cigarettes daily. nicotine patch. (6) Elevated troponin Current visit: Yes Status: Acute [id number] I versus 2. patient never had evaluation of her coronary arteries. serial troponin. Cardiology consultation Internal Medicine - H&P: HPI Chief complaint: sob History of present illness: Ms. Carranza is a 66 year old female with past medical history of uncontrolled hypertension has stopped taking all her medications 5 month ago after she lost her primary care physician, history of CKD stage 4-5, presents to the emergency room today with the main complaint of shortness of breath. For the past day patient has been experiencing progressive shortness of breath to the point where she is short of breath at rest. She noticed that she short of breath especially when she lays flat on her back and improves when sitting up. She had some retrosternal chest discomfort that only lasts intermittently for few seconds. No relation of her chest pain with exertion. She has denied any fevers chills cough expectoration. no sick contacts or recent travel. Patient was severely hypertensive on arrival to the emergency room. Patient mentioned that she has the noncompliant with all her heart medications for the past 5 month is not taking any medicines at all. Patient mentioned that she was noncompliant after she lost her primary care physician. Patient has never had coronary evaluation before. Past Med Surg Social Fam HX - Past Medical History Medical history: CHF, hypertension, thyroid disease Psychiatric history: bipolar, depression - Social History Smoking Status: Current every day smoker Smokeless Tobacco Status: No Alcohol use: occasionally Drug use: none - Family History Brother Hx Family Endocrine Disorder: Yes (DM) Internal Medicine - H&P: Meds Furosemide [Lasix] 20 mg PO BID #60 tablet 04/04/16 [Rx] Metoprolol [Lopressor] 25 mg PO BID #60 tablet 04/04/16 [Rx] Sodium Bicarbonate 650 mg PO BID #60 tablet 04/04/16 [Rx] amLODIPine [Norvasc] 5 mg PO DAILY #30 tablet 04/04/16 [Rx] 3 Allergy/AdvReac Type Severity Reaction Status Date / Time cephalexin [From Keflex] AdvReac Rash Verified 02/06/17 10:15 codeine AdvReac Nausea Verified 02/06/17 10:15 All Systems PM: A 10-system review of systems was performed and is negative for pertinent findings except as documented above in the HPI. Review of systems: 10 point review of systems is negative except for HPI - Constitutional Vitals: Temp Pulse Resp BP Pulse Ox 98.1 F 101 22 171/97 94 02/06/17 10:33 02/06/17 12:16 02/06/17 10:33 02/06/17 12:16 02/06/17 12:16 Exam: Gen.: patient is alert oriented times 3 not in distress. Cardiac: normal S1 S2 no additional sounds or murmurs. Chest: Bilateral basal crackles Abdomen: soft nontender nondistended normal bowel sounds lower extremity: lax calf muscles no swelling neuro: no focal deficit Internal Med - H&P Results - Labs CBC & Chem 7: 02/06/17 10:37 02/06/17 10:37
[2017-02-06] MEDS ORDERED: Levofloxacin 750 MG/150 ML 750 MG/150 ML BAG IVPB SCH (16:00)
[2017-02-06] MEDS ORDERED: 0.9 % Sodium Chloride 250 ML ONE (18:23)
[2017-02-06] MEDS ORDERED: Melatonin 3 MG TABLET PO ONE (20:28)
[2017-02-07 04:43] LABS: Basophils % 0.2 %; Eosinophils % 0.1 %; Hematocrit 25.3 % (35.3-44.9); Hemoglobin 8.3 g/dL (11.5-15.4); Immature Granulocytes % 0.7 % (0-4); Mean Corpuscular HGB Conc 32.8 g/dL (31.6-35.5); Mean Corpuscular Hemoglobin 30.5 pg (28.0-33.3); Mean Platelet Volume 11.1 fL (9.4-12.4); Monocytes # 0.6 K/mcL (0.0-1.3); Monocytes % 3.8 %; Neutrophils # 14.8 K/mcL (1.6-8.9); Platelet Count 263 K/mcL (140-400); Red Blood Count 2.72 M/mcL (3.82-4.97); Red Cell Distribution Width 14.4 % (11.5-14.5); Segmented Neutrophils % 89.2 %
[2017-02-07 04:55] LABS: Calcium 9.2 mg/dL (8.6-10.3); Magnesium 1.7 mg/dL (1.6-2.6); Potassium 3.8 mEq/L (3.5-5.1)
--- NOTE | 2017-02-07 07:41 | Electrocardiograph Report ---
[address] [place], [place] [address] Test Date: 2017-02-06 Pat Name: Daria [place] Department: 103 Room: 2A35 Gender: F Assistant Store Leader: ADELINE : 1950 Requested By: Kobi Diaz Order Number: [id number] Reading MD: Francisco Javier Daniel DO Measurements Intervals [place] Rate: 100 P: 78 MS: 176 QRS: -34 QRSD: 98 T: 138 QT: 351 QTc: 408 Interpretive Statements SINUS TACHYCARDIA POSSIBLE LEFT ATRIAL ENLARGEMENT LEFT AXIS DEVIATION ST DEVIATION AND MODERATE T-WAVE ABNORMALITY, CONSIDER ANTEROLATERAL ISCHEMIA Electronically Signed On 02-07-2017 7:39:55 EST by Francisco Javier Daniel DO
--- NOTE | 2017-02-07 08:51 | Cardiology Consult Note ---
<RanjitDave ye Gino - Last Filed: 02/07/17 08:49> Date of Encounter: 02/07/17 Time of Encounter: 08:49 Assessment and Plan (1) CHF exacerbation Current Visit: Yes Status: Acute Suspect combined CHF exacerbation. Echo 03/2016 EF mildly reduced at 45%--global , and moderate diastolic dysfunction. BNP >5000, CXR consistent with CHF. Admits to excess Na intake at home. Counselled on low Na and fluid restriction. Agree with IV Lasix 40mg daily. No hx of invasive coronary evaluation. Discussed with pt. She is DNR-CCA-DNI. Declines invasive evaluation/LHC. Wants medical management. Seems reasonable given her advanced CKD and anemia. Repeat echo pending. Recommend strict I/Os, daily weights, Na and fluid restriction. Anticipate sign off once seen and evaluated by Dr. Espinoza. Qualifiers: Congestive heart failure type: combined Qualified Code(s): I50.43 - Acute on chronic combined systolic (congestive) and diastolic (congestive) heart failure (2) Elevated troponin I level Current Visit: Yes Status: Acute Troponins 0.07, 0.07, 0.06 in setting of CKD, CHF exacerbation, anemia, hypertensive urgency on arrival. Suspect demand ischemia, nondiagnostic for ACS. Prior echo 03/2016 EF 45%. Current echo pending. Medical management as above. (3) Hypertensive urgency Current Visit: Yes Status: Acute Now improved. BP was 164/116 on arrival secondary to medication noncompliance. (4) Tobacco abuse Current Visit: Yes Status: Acute 2 PPD since 1990. Smoking cessation counseling given. Discussion w patient/family: The assessment and plan as outlined above was discussed with the patient and/or family members who expressed understanding and agreement. All questions were answered. Thank you for involving us in the care of your patient. Please call with any questions. I will discuss all the above with Dr. Espinoza and make changes as necessary. History of Present Illness Consult date: 02/07/17 Requesting physician: Lorenzo Do Consult reason: Elevated troponin, chf Chief complaint: dyspnea History of present illness: Ms. Carranza is a 66 year old female with PMH of uncontrolled HTN--stopped taking all her medications 5 month ago after she lost her primary care physician , history of CKD stage 4-5, mildly reduced EF 45%, tobacco abuse that presented to the ED yesterday with the main complaint of shortness of breath that started yesterday at 5AM. She had some retrosternal chest discomfort that only lasts intermittently for few seconds, relieved with O2 and nebulizers. Troponins 0.07 , 0.07, 0.06. BNP >5000. CXR bilateral perihilar infiltrates-likely related to CHF but an inflammatory process is not excluded. Pt reports feeling much better this AM. Admits to recent decreased appetite and weight loss. Denies current chest pain, dyspnea improved. Admits to excess salt intake at home. Echo 03/2016 EF 45%, mild global reduction. Past Med Surg Social Fam HX - Past Medical History Medical history: CHF, hypertension, thyroid disease Psychiatric history: bipolar, depression - Social History Smoking Status: Current every day smoker Smokeless Tobacco Status: No Alcohol use: occasionally Drug use: none - Family History Brother Hx Family Endocrine Disorder: Yes (DM) Medications and Allergies Furosemide [Lasix] 20 mg PO BID #60 tablet 04/04/16 [Rx] Metoprolol [Lopressor] 25 mg PO BID #60 tablet 04/04/16 [Rx] Sodium Bicarbonate 650 mg PO BID #60 tablet 04/04/16 [Rx] amLODIPine [Norvasc] 5 mg PO DAILY #30 tablet 04/04/16 [Rx] 3 Allergy/AdvReac Type Severity Reaction Status Date / Time cephalexin [From Keflex] AdvReac Rash Verified 02/06/17 10:15 codeine AdvReac Nausea Verified 02/06/17 10:15 All Systems Review: A 10-system review of systems was performed and is negative for pertinent findings except as documented above in the HPI. - Constitutional Constitutional: anorexia, weight loss - Cardiovascular Cardiovascular: as per HPI, chest pain at rest, dyspnea at rest, dyspnea on exertion - Respiratory Respiratory: dyspnea Physical Examination Vital Signs Temp Pulse Resp BP Pulse Ox 02/07/17 08:15 98.6 F 101 16 155/84 99 02/07/17 04:12 98.8 F 110 16 161/88 99 02/07/17 00:00 164/102 02/06/17 23:47 98.4 F 104 18 166/102 97 02/06/17 21:06 98.6 F 106 16 162/100 100 02/06/17 19:14 99.3 F 106 18 149/94 96 02/06/17 18:50 98.7 F 102 16 137/81 98 02/06/17 18:41 98.2 F 107 16 136/85 02/06/17 15:34 18 172/99 02/06/17 12:16 101 171/97 94 02/06/17 10:39 95 02/06/17 10:33 98.1 F 101 22 171/97 95 Intake and Output 02/06/17 02/07/17 02/07/17 23:59 07:59 15:59 Intake Total 500 / 500 Balance 500 / 500 Intake: IV Fluids 150 / 150 Levaquin Premix 750mg/150 mL 150 / 150 750 mg In 150 ml @ 100 mls/hr IVPB Q48H [facility] Rx#:[id number] Oral 0 / 0 Blood Product 350 / 350 Rbcs Leuko Poor As-1 Unit 350 / 350 [id number] Other: Weight 58.1 kg Patient Weight 02/07/17 23:59 Weight 58.1 kg General: Conversant, No Apparent Distress HEENT: Atraumatic, Normocephaly, Mucus Membranes Moist Neck: Normal carotid pulses Cardiac: Reg Rate and Rhythm, Normal S1 and S2, No Murmur Lungs: Normal Breath Sounds, No Wheeze, Rales, Rhonchi Neuro: Alert and responsive, No focal deficits noted Abdomen: Soft, Non-Tender Skin: No rashes noted on visualized skin Musculoskeletal: No Chest Wall Tenderness Extremities: No Clubbing, No Cyanosis, No Edema, Normal Pulses Results 02/07/17 04:08 02/07/17 04:08 Lab Results 02/06/17 02/06/17 02/07/17 16:45 22:47 04:08 WBC 16.6 H Hgb 8.3 L Hct 25.3 L Plt Count 263 Sodium Potassium Chloride Carbon Dioxide BUN Creatinine Glucose Calcium Magnesium Troponin I 0.07 H* 0.07 H* 02/07/17 04:08 WBC Hgb Hct Plt Count Sodium 137 Potassium 3.8 Chloride 108 H Carbon Dioxide 19 L BUN 35 H Creatinine 3.34 H Glucose 196 H Calcium 9.2 Magnesium 1.7 Troponin I Short CBC 02/07/17 02/06/17 Range/Units 04:08 10:37 WBC 16.6 H 20.7 H (4.3-11.1) K/mcL Hgb 8.3 L 7.5 L (11.5-15.4) g/dL Hct 25.3 L 24.0 L (35.3-44.9) % Plt Count 263 315 (140-400) K/mcL Neutrophils # 14.8 H 17.9 H (1.6-8.9) K/mcL BMP 02/07/17 02/06/17 Range/Units 04:08 10:37 Sodium 137 139 (136-145) mEq/L Potassium 3.8 3.9 (3.5-5.1) mEq/L Chloride 108 H 113 H (98-107) mEq/L Carbon Dioxide 19 L 17 L (23-29) mEq/L BUN 35 H 32 H (8-23) mg/dL Creatinine 3.34 H 3.20 H (0.60-1.20) mg/dL Glucose 196 H 195 H (70-105) mg/dL Calcium 9.2 9.0 (8.6-10.3) mg/dL Cardiac Enzymes 02/06/17 02/06/17 02/06/17 Range/Units 22:47 16:45 10:37 Troponin I 0.07 H* 0.07 H* 0.06 H* (< 0.04) ng/mL Urine 02/06/17 Range/Units 11:25 Urine Color Yellow (Yellow) Urine Clarity Cloudy A (Clear) Urine pH 6.0 (5.0-8.0) pH Units Ur Specific [place] 1.016 (1.010-1.025) Urine Protein 100 H (Neg-Trace) mg/dL Urine Glucose (UA) 250 H (Normal) mg/dL Impressions Chest X-Ray 02/06/17 10:23 IMPRESSION: Bilateral perihilar infiltrates. The findings are likely related to CHF but an inflammatory process is not excluded. D/ / Oniel Aparicio MD / Oniel Aparicio MD Interpreting Provider: Oniel Aparicio MD Pulmonary Perfusion Imaging 02/06/17 12:12 IMPRESSION: Low Probability for Pulmonary Embolus. D/ / Rayray Hastings MD / Rayray Hastings MD Interpreting Provider: Rayray Hastings MD Active Medications Amlodipine Besylate (Norvasc) 5 mg PO DAILY PILO PRN Reason: Protocol Stop: 08/09/17 09:01 Aspirin (Aspirin) 325 mg PO DAILY PILO Stop: 08/09/17 09:01 Furosemide (Lasix) 40 mg IVP DAILY PILO Stop: 08/09/17 09:01 Guaifenesin (Robitussin/Dm) 10 ml PO Q6HR PRN PRN Reason: Cough Stop: 08/08/17 22:16 Last Admin: 02/06/17 22:30 Dose: 10 ml Hydralazine HCl (Hydralazine) 10 mg IVP Q6HR PRN PRN Reason: Hypertension Stop: 08/09/17 00:07 Last Admin: 02/07/17 00:28 Dose: 10 mg Levofloxacin/Dextrose (Levaquin Premix 750mg/150 Ml) 750 mg in 150 mls @ 100 mls/hr IVPB Q48H PILO PRN Reason: Protocol Stop: 08/08/17 16:01 Last Infusion: 02/06/17 19:00 Dose: Infused Isosorbide Mononitrate (Imdur) 60 mg PO DAILY [facility] Stop: 08/09/17 09:01 Metoprolol Tartrate (Lopressor) 50 mg PO BID PILO Stop: 08/09/17 08:07 Sodium Bicarbonate (Sodium Bicarbonate) 650 mg PO BID PILO Stop: 08/08/17 21:01 Last Admin: 02/06/17 20:39 Dose: 650 mg - Imaging and Cardiology Echo: report reviewed - EKG Interpretation EKG results cardiology: personally reviewed (Sinus tach rate 100), other (12 hr tele AVG HR 105, sinus tach) Consult Discharge Plan - Plan Referrals: Vito Pedro DO [Primary Care Provider] - <Gabrielle Espinoza - Last Filed: 02/07/17 10:36> Date of Encounter: 02/07/17 - Attending Attestation I examined this patient and my medical decision-making was reviewed with the PUBLICITY DIRECTOR. I agree with the documented findings, disposition and treatment plan as described. Ms. Carranza presents with elevated troponins which are flat and adynamic in the setting of CK D, CHF exacerbation, anemia and hypertensive urgency on arrival. Suspect demand ischemia. Troponins are not diagnostic for an acute coronary syndrome. Prior echo from March 2016 demonstrated an ejection fraction of 45%. Discussed these findings with the patient. If her ejection fraction remains low, I did recommend to the patient we consider a left heart catheterization. The risks, benefits and alternatives of procedure were discussed with the patient. She expressed understanding. She was alert and oriented 3 at the time of this conversation. She absolutely declined any further intervention. She does not wish to pursue a left heart catheterization. She even stated it is possible that she may not take her medications at home. She does admit to a history of depression although she does not feel that way presently. She denies suicidal ideation. Her prior psychiatrist had - recommend primary team consider establishing patient with a new provider at discharge. At this time, I recommend decreasing her aspirin to 81 mg daily. I did make the patient aware that if she does not take her blood pressure medicines and if her blood pressure should become extremely elevated, there is a possibility of intracranial bleeding while on antiplatelet therapy. For now, I will uptitrate her Lopressor for better blood pressure control. She expressed understanding of what we discussed. She is open to taking her BP medications but is not interested in adding new meds. We will sign off. Consider outpatient follow up if patient allows. Assessment and Plan Discussion w patient/family: The assessment and plan as outlined above was discussed with the patient and/or family members who expressed understanding and agreement. All questions were answered. Thank you for involving us in the care of your patient. Please call with any questions. History of Present Illness History of present illness: Ms. Carranza is a 66 year old female All Systems Review: A 10-system review of systems was performed and is negative for pertinent findings except as documented above in the HPI. Physical Examination Vital Signs, Last 4 Hours Temp Pulse Resp BP Pulse Ox 02/07/17 09:13 99 02/07/17 08:15 98.6 F 101 16 155/84 99 Results 02/07/17 04:08 02/07/17 04:08 Lab Results 02/06/17 02/06/17 02/07/17 16:45 22:47 04:08 WBC 16.6 H Hgb 8.3 L Hct 25.3 L Plt Count 263 Sodium Potassium Chloride Carbon Dioxide BUN Creatinine Glucose Calcium Magnesium Troponin I 0.07 H* 0.07 H* 02/07/17 04:08 WBC Hgb Hct Plt Count Sodium 137 Potassium 3.8 Chloride 108 H Carbon Dioxide 19 L BUN 35 H Creatinine 3.34 H Glucose 196 H Calcium 9.2 Magnesium 1.7 Troponin I
[2017-02-07] MEDS ORDERED: Isosorbide MONOnitrate (24 HR) 30 MG TAB.ER.24H PO SCH ×2 (09:00)
[2017-02-07] MEDS ORDERED: amLODIPine 5 MG TABLET PO SCH (09:00)
[2017-02-07] MEDS ORDERED: Furosemide 40 MG/4 ML VIAL IVP SCH (09:00)
[2017-02-07] MEDS ORDERED: Aspirin 325 MG TABLET PO SCH (09:00)
[2017-02-07] MEDS ORDERED: FLUARIX QUAD 2017-18 36MOS UP/PF 0.5 ML SYRINGE IM ONE (13:45)
--- NOTE | 2017-02-07 14:18 | Discharge Summary ---
Date of Encounter: 02/07/17 Time of Encounter: 14:12 - Discharge Diagnosis (1) Congestive heart failure Priority: Primary Status: Acute Qualifiers: Qualified Code(s): I50.9 - Heart failure, unspecified (2) CKD stage 5 secondary to hypertension Priority: Primary Status: Acute (3) UTI (urinary tract infection) Priority: Primary Status: Acute Qualifiers: Qualified Code(s): N39.0 - Urinary tract infection, site not specified; R31.9 - Hematuria, unspecified; R31.9 - Hematuria, unspecified (4) Hypertensive urgency Priority: Primary Status: Acute Comments: Improved (5) Tobacco abuse Priority: Secondary Status: Acute (6) Elevated troponin Priority: Primary Status: Acute - Discharge Medications Prescriptions: amLODIPine [Norvasc] 10 mg PO DAILY #30 tablet Aspirin 81 mg PO DAILY #30 tab.chew Furosemide [Lasix] 20 mg PO BID #60 tablet Isosorbide MONOnitrate (24 HR) [Imdur] 60 mg PO DAILY #30 tab.er.24h Metoprolol [Lopressor] 50 mg PO BID #60 tablet Sodium Bicarbonate 650 mg PO DAILY #30 tablet Home Medications: Aspirin 81 mg PO DAILY #30 tab.chew 02/07/17 [Rx] Furosemide [Lasix] 20 mg PO BID #60 tablet 02/07/17 [Rx] Isosorbide MONOnitrate (24 HR) [Imdur] 60 mg PO DAILY #30 tab.er.24h 02/07/17 [ Rx] Metoprolol [Lopressor] 50 mg PO BID #60 tablet 02/07/17 [Rx] Sodium Bicarbonate 650 mg PO DAILY #30 tablet 02/07/17 [Rx] amLODIPine [Norvasc] 10 mg PO DAILY #30 tablet 02/07/17 [Rx] Allergies/Adverse Reactions: 3 Allergy/AdvReac Type Severity Reaction Status Date / Time cephalexin [From Keflex] AdvReac Rash Verified 02/06/17 10:15 codeine AdvReac Nausea Verified 02/06/17 10:15 Procedures/tests Complete & Pending: Procedures Performed prior 72 hours Category Date Time Status EV echocardiogram Routine Y 02/06/17 15:05 Completed Renal artery ultrasound [EV renal artery image] Routine Y 02/07/17 08:06 Completed Date of admission: 02/06/17 14:46 Primary care physician: Vito Pedro DO Consults: 02/06/17 15:05 Consult to Occupational Therapy [CONS] Routine Comment: Evaluate, develop and implement POC Reason for Consult: weakness Consult to Physical Therapy [CONS] Routine Comment: Evaluate, develop and implement POC Reason for Consult: weakness 02/06/17 15:14 Consult to Cardiology [CONS] Routine Comment: Consulting Provider: Juan Jose Higgins Reason for Consult: nstemi Call Completed: No 02/06/17 16:18 Consult to Nutrition [CONS] Routine Comment: Consulting Provider: NUTRITION Reason for Dietary Consult: MST Score - Patient Status Disposition: Home, Self-Care Condition: Good - Discharge Instructions Instructions: Heart Failure (DC), How to Stop Smoking (DC), Chronic Kidney Disease (DC) Follow Up With: Vito Pedro DO [Primary Care Provider] - (web request 02/07/2017) Interval History: 66-year-old female with history of COPD, hypertension was stopped taking all her medications a year ago presents to the emergency room shortness of breath. Patient was found to be in congestive heart failure. Medications were restarted and titrated for optimal blood-pressure control. Patient will be discharged home per her request. She has refused to stay an extra day in hospital for optimal titration of medications and adjustment of her blood pressure. Patient will be discharged from metoprolol 50 mg twice a day, Norvasc 10 mg daily, Lasix 20 mg b.i.d., imdur 60 mg daily, aspirin 81 mg daily. Patient has CKC or and is on sodium bicarb 650 mg twice a day. Patient has slight one elevation, never had coronary evaluation. Cardiologists have seen the patient decided on conservative management because of her CKD. Patient will see her primary care physician within one week after discharge. Patient was set up home oxygen. Patient will also get a prescription for levofloxacin 500 mg daily every other day for 3 doses for urinary tract infection. Hospital course: Ms. Carranza is a 66 year old female - Time Spent with Patient Total time spent providing and/or coordinating discharge services: - Constitutional Vitals: Temp Pulse Resp BP Pulse Ox 98.6 F 101 16 155/84 100 02/07/17 08:15 02/07/17 08:15 02/07/17 08:15 02/07/17 08:15 02/07/17 13:33 Exam: Gen.: patient is alert oriented times 3 not in distress cardiac: normal S1 S2 no additional sounds are murmurs chest: fair air entry no wheezing abdomen: soft nontender nondistended lower extremity: no swelling - VTE Documentation of Mechanical Device: Intermittent pneumatic compression device
[2017-02-07 14:23] VITALS: BP 141/87
[2017-02-08] MEDS ORDERED: Aspirin 81 MG TAB.CHEW PO SCH (09:00)
== END 2017-02-07 15:52 | disposition home or self-care (01) | DRG 291 ==
LOC: EMEROO 10:15 → 2ANU 14:46
PROVIDERS: ADMIT Hospitalist; ATTEND Family Medicine